=== PATIENT | female | born 1960 | race American Indian/Alaskan Native ===

== ENCOUNTER 2018-02-07 08:24 | Day surgery (SDC) | payer BC ==
[2018-02-07] MEDS ORDERED: ATROPINE 0.1% (CARDIAC) ONE (10:30)
[2018-02-07] MEDS ORDERED: ADRENALIN ONE (10:30)
[2018-02-07] MEDS ORDERED: NACL 0.9% 500 ML 500 ML ONE (10:31)
[2018-02-07] MEDS: NITROSTAT SL ONE ×2 (10:42→10:57)
--- NOTE | 2018-02-07 11:11 | Short Stay Summary ---
Short Stay Documentation Date of service: 02/07/18 - History H&P: obtained from office - Allergies and Medications Current Medications: Allergies No Known Allergies Allergy (Verified 02/07/18 08:37) Home Medications Medication Instructions Recorded Confirmed Last Taken Type AtorvaSTATin [Lipitor] 10 mg PO QHS 02/07/18 02/07/18 02/06/18 History Multivitamin [Multiple Vitamins] 1 each PO QDAY 02/07/18 02/07/18 02/07/18 07: 00 History amLODIPine [Norvasc] 5 mg PO DAILY 02/07/18 02/07/18 02/07/18 07:00 History - Physical exam General appearance: no acute distress Lungs: Clear to auscultation Breasts: deferred Heart: Regular rate Gastrointestinal: normal Female Genitourinary: deferred Rectal Exam: deferred Extremities: no ischemia Neurological: Normal gait - Brief post op/procedure progress note Date of procedure: 02/07/18 Pre-op diagnosis: Syncope Post-op diagnosis: same Procedure: TTT Anesthesia: none Findings: See report Surgeon: MARITZA BECKETT Estimated blood loss: none Pathology: none Condition: stable - Hospital course Hospital course: Uneventful - Disposition Condition at discharge: Good Disposition: DC-01 TO HOME OR SELFCARE Short Stay Discharge Plan Activity: advance as tolerated Weight Bearing Status: Weight Bear as Tolerated Diet: regular Follow up with: LO MURILLO MD [Primary Care Provider] - 7 Days
[2018-02-07 11:44] VITALS: BP 140/85
--- NOTE | 2018-02-07 13:36 | Procedure Note ---
TILT TABLE TEST INDICATION: Syncope. ORDERING PHYSICIAN: Dr. Barron Castillo. DESCRIPTION OF PROCEDURE: After obtaining written consent, the patient was brought to the production laborer area. The patient was placed securely on the tilt table test. Blood pressure pre-tilting was 146/92 with a heart rate of 64 beats per minute. The patient was tilted to 85 degrees from horizontal. Post-tilting, her blood pressure was 163/96 with a heart rate of 59. The patient was maintained in the upright position for 10 minutes. At the end of these 10 minutes, her blood pressure was 171/97 with a heart rate of 69 beats per minute. The patient was given sublingual nitroglycerin 0.4 mg once and was kept in the upright position. Ten minutes after the nitroglycerin was given, her blood pressure was 132/88 and the heart rate was 98 beats per minute. The lowest recorded blood pressure was 129/90 and the highest recorded heart rate was 98 beats per minute. There was no evidence of a cardioinhibitory response or vasodepressor response. IMPRESSION: This is a negative tilt table test with no evidence of cardioinhibitory or vasodepressor response. RECOMMENDATION: Follow up with referring magnetic resonance imaging coordinator. JOB# [id number] GODFREY/YOLANDA
== END 2018-02-07 12:05 | disposition home or self-care (01) ==
LOC: CATHLABREC 08:24
PROVIDERS: ATTEND Internal Medicine
DX: R55 Syncope and collapse (principal); J45.909 Unspecified asthma, uncomplicated; I10 Essential (primary) hypertension; M19.90 Unspecified osteoarthritis, unspecified site; M81.0 Age-related osteoporosis without current pathological fracture; Z98.51 Tubal ligation status; Z90.710 Acquired absence of both cervix and uterus
CPT/HCPCS: 93660; J7040; J0171; J0461